=== PATIENT | female | born 1975 | race Caucasian/White ===

== ENCOUNTER 2017-05-12 03:45 | Emergency (ER) | payer BC ==
[~2017-05-12] VITALS: Ht 165.1 cm; Wt 95.9 kg
[2017-05-12] MEDS ORDERED: PERCOCET 5/31 TABLET PO (04:53)
[2017-05-12] MEDS ORDERED: VALIUM5 MG PO (04:53)
[2017-05-12] MEDS ORDERED: MEDROL DOSEPAK4 MG PO (04:53)
[2017-05-12 05:22] VITALS: BP 132/78
== END 2017-05-12 05:25 | disposition home or self-care (01) ==
LOC: EDBD 03:45 → EME 03:45
DX: M54.41 Lumbago with sciatica, right side (principal); F32.9 Major depressive disorder, single episode, unspecified; F17.200 Nicotine dependence, unspecified, uncomplicated
CPT/HCPCS: 99281; 99284; J7512